=== PATIENT | male | born 1960 | race Caucasian/White ===

== ENCOUNTER 2020-09-17 17:08 | Emergency (ER) | payer SELFPAY ==
[~2020-09-17] VITALS: Ht 173 cm; Wt 82.0 kg
[2020-09-17 17:23] VITALS: BP 154/79
--- NOTE | 2020-09-17 17:35 | ED Fall/Injury ---
General Chief Complaint: Trauma-Non Activation Stated Complaint: FALL/R SHOULDER PAIN/ACHE Nursing Triage Note: PT STATES HE WAS UP ON THE ROOF OF HIS PORCH AND FELL OFF, ABOUT 8 FEET, CC OF RT SHOULDER PAIN, DENIES ANY OTHER PAIN OR HITTING HIS HEAD. Source: patient Exam Limitations: no limitations History of Present Illness Date Seen by Provider: Sep 17, 2020 Time Seen by Provider: 17:30 Initial Comments Patient is a 60-year-old male who presents to the emergency department today with a chief complaint of right shoulder pain. Patient states that he was on his roof about to clean out his gutters when he had a fall approximately 10 feet off of the roof of his porch. Patient states he landed on his right shoulder. He did suffer some abrasions and superficial scrapes to his left elbow and some bruising to his knees. Patient denies hitting his head he did not have a loss of consciousness. He denies any chest pain, shortness of breath, abdominal pain. Denies any headache vision changes, nausea or vomiting. States he is having difficulties with forward flexion at his right shoulder AB duction and rotation at the shoulder. No problems with his hand wrist or elbow. All other review of systems reviewed and negative except as stated. Occurred: just prior to arrival Severity: moderate Injuries/Pain Location: upper extremity Context: lost balance Loss of Consciousness: no loss of consciousness Modifying Factors: Improves With Immobilization Allergies and Home Medications Allergies Coded Allergies: No Known Drug Allergies (Unverified , 07/20/12) Patient Home Medication List Home Medication List Reviewed: Yes Review of Systems Review of Systems Constitutional: no symptoms reported, see HPI Eyes: No Symptoms Reported Ears, Nose, Mouth, Throat: no symptoms reported Respiratory: no symptoms reported Cardiovascular: no symptoms reported Gastrointestinal: no symptoms reported Genitourinary: no symptoms reported Musculoskeletal: joint pain, muscle pain Skin: lesions Past Jnianrw-Pbfeqv-Dsrrbq Hx Patient Social History Alcohol Use: Rarely Uses Alcohol Beverage of Choice: Beer Recreational Drug Use: Yes (THC) Smoking Status: Current Everyday Smoker Type Used: Cigarettes Recent Foreign Travel: No Contact w/Someone Who Travel: No Recent Infectious Disease Expo: No Recent Hopitalizations: No Physical Abuse: No Sexual Abuse: No Mistreated: No Fear: No Seasonal Allergies Seasonal Allergies: No Past Medical History Surgeries: Yes Eye Surgery Respiratory: No Cardiac: No Neurological: No Genitourinary: No Gastrointestinal: No Musculoskeletal: No Endocrine: No HEENT: Yes (RT EYE CATARACT) Cataract Cancer: No Psychosocial: No Integumentary: No Physical Exam Vital Signs Vital Signs - First Documented 09/17/20 17:23 Temp 36.8 Pulse 94 Resp 20 B/P (MAP) 154/79 (104) Pulse Ox 98 O2 Delivery Room Air Capillary Refill : Less Than 3 Seconds Height, Weight, BMI Height: '" Weight: lbs. oz. kg; 27.00 BMI Method:Stated General Appearance: WD/WN, no apparent distress HEENT: PERRL/EOMI, normal ENT inspection Neck: non-tender, full range of motion, supple Cardiovascular: regular rate, rhythm Respiratory: chest non-tender, lungs clear, normal breath sounds, no respiratory distress, no accessory muscle use Gastrointestinal: normal bowel sounds, non tender, soft Extremities: other (Right shoulder tenderness posteriorly, decreased range of motion especially with forward flexion abduction and and rotation; patient has abrasions to the left elbow) Neurologic/Psychiatric: no motor/sensory deficits, alert, normal mood/affect, oriented x 3 Skin: normal color, warm/dry Montgomery Coma Score Best Eye Response: (4) Open Spontaneously Best Verbal Response: (5) Oriented Best Motor Response: (6) Obeys Commands Progress/Results/Core Measures Results/Orders My Orders Orders - CONNIE BILLINGS MD Shoulder, Right, 3 Views (09/17/20 17:35) Vital Signs/I&O 09/17/20 17:23 Temp 36.8 Pulse 94 Resp 20 B/P (MAP) 154/79 (104) Pulse Ox 98 O2 Delivery Room Air Blood Pressure Mean: 104 Progress Progress Note : Time: 18:10 Progress Note 60-year-old male presents to the emergency department today with a chief complaint of right shoulder pain after a 10 foot fall. Evaluation today includes a physical exam. Patient clinically looks well. Has multiple superficial scrapes and abrasions. Will receive a tetanus shot while in the ER today. Patient's x- rays have been reviewed, 3 views of the right shoulder. No evidence of osseous abnormality is found. The radiologist has read the films and there is no evidence of fracture or dislocation. I suspect that the patient might have torn his rotator cuff. Will sling him give him some pain medicines and refer him to orthopedics. The patient is comfortable with this plan of care. All questions are sought and answered and he is stable for discharge. Diagnostic Imaging Diagonstic Imaging: Xray Comments [facility], [place] NAME: LESLY ANN [facility] REC#: [id number] PT STATUS: REG ER : 1960 PHYSICIAN: CONNIE BILLINGS MD ADMIT DATE: 09/17/20/ER Draft Date of Exam:09/17/20 SHOULDER, RIGHT, 3 VIEWS EXAM: Right shoulder radiograph. EXAM DATE: 09/17/2020. COMPARISON: Fall and right shoulder pain. TECHNIQUE: Three views of the right shoulder. FINDINGS: No acute fracture, dislocation or destructive osseous process. The joint spaces are normal. Soft tissues are normal. The humeral head is situated appropriately within the glenohumeral joint. Visualized lungs are clear. IMPRESSION: No acute osseous abnormality of the right shoulder. Dictated on workstation # [id number] Dict: 09/17/201751 Trans: 09/17/201755 [facility] [id number] Interpreted by: ELISA LONDON DO Electronically signed by: Departure Impression Primary Impression: Internal derangement of shoulder Qualified Codes: M24.811 - Other specific joint derangements of right shoulder, not elsewhere classified Disposition: 01 HOME, SELF-CARE Condition: Stable Departure-Patient Inst. Decision time for Depature: 18:11 Referrals: [facility] (PCP/Family) Primary Care Physician FLOR JAMES MD Patient Instructions: Contusion (DC) Add. Discharge Instructions: Use the shoulder sling for the next 48 hours as needed for comfort. Then slowly start some range of motion exercises with your right arm. Please call Dr. James's office tomorrow for a follow-up appointment. Pain medications as needed. You can alternate these with [id number] ibuprofen or Aleve. Ice your shoulder over the next 2 days as well periodically to reduce swelling and inflammation. Return to the emergency department for any new, emergent, worsening symptoms or concerns. All discharge instructions reviewed with patient and/or family. Voiced understanding. Scripts Hydrocodone/Acetaminophen (Hydrocodone/Acetaminophen 5 MG/325 MG TAB) 1 Each Tablet 1 TAB PO Q4-6HR for Pain MDD 10 TABS for 7 Days, #10 TAB Prov: CONNIE BILLINGS MD 09/17/20 CONNIE BILLINGS MD Sep 17, 2020 17:34
--- NOTE | 2020-09-17 17:56 | Diagnostic Imaging Report ---
EXAM: Right shoulder radiograph. EXAM DATE: 09/17/2020. COMPARISON: Fall and right shoulder pain. TECHNIQUE: Three views of the right shoulder. FINDINGS: No acute fracture, dislocation or destructive osseous process. The joint spaces are normal. Soft tissues are normal. The humeral head is situated appropriately within the glenohumeral joint. Visualized lungs are clear. IMPRESSION: No acute osseous abnormality of the right shoulder. Dictated by: Dictated on workstation # [id number]
[2020-09-17] MEDS ORDERED: HYDR-4226 PO (18:14)
[2020-09-17] MEDS ORDERED: TETANUS,DIPTH,PERTUSS P/F (BOOSTRIX) 0.5 ML VIAL IM ONE (18:30)
== END 2020-09-17 19:26 | disposition home or self-care (01) ==
LOC: EDUNIT# 17:08 → ER 17:12
DX: S80.02XA Contusion of left knee, initial encounter (principal); S80.01XA Contusion of right knee, initial encounter; S50.312A Abrasion of left elbow, initial encounter; M24.811 Other specific joint derangements of right shoulder, not elsewhere classified; F17.210 Nicotine dependence, cigarettes, uncomplicated; Z23 Encounter for immunization; W17.89XA Other fall from one level to another, initial encounter
CPT/HCPCS: 73030; 90715; 99283

== ENCOUNTER → 2020-09-22 | Outpatient (CLI) | payer OTHER ==
[~2020-09-22] MED LIST: HYDR-4226 PO
== END ==
LOC: ORTHO 11:12
PROVIDERS: ATTEND Orthopaedic Surgery
DX: S43.491A Other sprain of right shoulder joint, initial encounter (principal); M67.819 Other specified disorders of synovium and tendon, unspecified shoulder; M67.813 Other specified disorders of tendon, right shoulder
CPT/HCPCS: 99203

== ENCOUNTER → 2020-10-06 | Outpatient (CLI) | payer OTHER | LOC: ORTHO 10:06 | PROVIDERS: ATTEND Orthopaedic Surgery | DX: M75.101 Unspecified rotator cuff tear or rupture of right shoulder, not specified as traumatic (principal); F17.210 Nicotine dependence, cigarettes, uncomplicated; Z80.9 Family history of malignant neoplasm, unspecified | CPT/HCPCS: 99213 ==

== ENCOUNTER → 2020-10-20 | Outpatient (CLI) | payer OTHER ==
--- NOTE | 2020-10-20 16:06 | Diagnostic Imaging Report ---
PROCEDURE: MRI right joint upper extremity without contrast. TECHNIQUE: Multiplanar, multisequence non contrast-enhanced MRI of the right upper extremity was accomplished. INDICATION: Shoulder pain. COMPARISON: There are no prior MRI examinations available for comparison. FINDINGS: The plain film examination of the right shoulder performed on 09/17/2020 failed to show any sign of an acute bony abnormality. On the T2 fat-saturated coronal series there is a thin area of increased signal along the anterior most insertion of the rotator cuff. This does suggest a small rim rent tear. The supraspinous muscle in this area is slightly bunched but the muscle is not fully retracted. The rotator cuff is otherwise intact. There is hypertrophy of the acromioclavicular joint but there does not appear to be any significant narrowing of the outlet for the supraspinous muscle. However, there is some fluid in the subacromial bursa and this does suggest that there is an element of mild bursitis present. The biceps tendon and the subscapularis tendon are intact. The labrum is thinned posteriorly and most likely slightly torn on a degenerative basis. There is a trace joint effusion present. There is no abnormal signal arising from the osseous structures to suggest bone edema or a fracture. Cystic degenerative disease of the greater tuberosity is evident. IMPRESSION: 1. There is a small rim rent tear of the anterior most insertion the rotator cuff. The supraspinous muscle in this area is slightly bunched but the muscle itself is not fully retracted. 2. The acromioclavicular joint is hypertrophied but there is no narrowing of the outlet for the supraspinous muscle. 3. The fluid in the subacromial bursa does suggest that there is an element of bursitis present. 4. The labrum is thinned posteriorly and most likely slightly torn on a degenerative basis. 5. There is no acute bony abnormality appreciated. Dictated by: Dictated on workstation # [id number]
== END ==
LOC: RAD 12:31
PROVIDERS: ATTEND Orthopaedic Surgery
DX: M75.101 Unspecified rotator cuff tear or rupture of right shoulder, not specified as traumatic (principal); T15.91XA Foreign body on external eye, part unspecified, right eye, initial encounter
CPT/HCPCS: 73221

== ENCOUNTER → 2020-10-22 | Outpatient (CLI) | payer OTHER | LOC: ORTHO 09:04 | PROVIDERS: ATTEND Orthopaedic Surgery | DX: M75.101 Unspecified rotator cuff tear or rupture of right shoulder, not specified as traumatic (principal); F17.210 Nicotine dependence, cigarettes, uncomplicated; Z80.9 Family history of malignant neoplasm, unspecified | CPT/HCPCS: 20610; G0463 ==

== ENCOUNTER → 2021-08-05 | Outpatient (CLI) | payer OTHER ==
--- NOTE | 2021-08-05 15:04 | Diagnostic Imaging Report ---
EXAMINATION: CT chest without contrast. TECHNIQUE: Multiple contiguous axial images were obtained through the chest without the use of intravenous contrast. All CT scans use one or more of the following dose optimizing techniques: automated exposure control, MA and/or KvP adjustment based on patient size and exam type or iterative reconstruction. HISTORY: Shortness of breath COMPARISON: None available. FINDINGS: Thyroid: The thyroid is normal. Mediastinum: Heart size is normal without significant pericardial effusion. The aorta is normal in caliber. No suspicious lymphadenopathy. Lungs and airways: The lungs are clear without consolidation, pleural effusion, or pneumothorax. There is an ill-defined left perihilar fullness which is incompletely characterized without IV contrast. The airways are normal. Upper abdomen: There are multiple indeterminate hypoattenuating lesions seen within the liver measuring up to 2.9 cm. Musculoskeletal: Degenerative changes of the spine without suspicious osseous lesion or compression fracture. IMPRESSION: 1. Ill-defined fullness within the left hilum which is incompletely characterized on this noncontrast exam but is concerning for perihilar mass or lymphadenopathy. 2. Multiple suspicious hypoattenuating lesion seen within the liver which raises concern for metastatic disease. Dictated by: Dictated on workstation # [id number]
== END ==
LOC: RAD 14:45
PROVIDERS: ATTEND Nurse Practitioner Family
DX: R06.02 Shortness of breath (principal); R93.89 Abnormal findings on diagnostic imaging of other specified body structures
CPT/HCPCS: 71250

== ENCOUNTER → 2021-08-25 | Outpatient (CLI) | payer OTHER ==
--- NOTE | 2021-08-25 12:38 | Diagnostic Imaging Report ---
Indication: Abnormal CT chest with a questionable left hilar mass as well as liver lesions. The study is performed for further evaluation. Serum blood glucose level at the time of injection is 99 mg/dL. Patient was administered 13.3 mCi F-18 FDG intravenously in the right antecubital location and PET imaging was performed from the top of skull to mid thighs. Noncontrast CT was also performed for attenuation correction and anatomic correlation. No prior PET/CT studies are available for comparison. Comparison is made with a conventional noncontrast CT chest study from 08/05/2021. There is symmetric activity throughout the brain. Soft tissues of the neck are unremarkable. There is a hypermetabolic left hilar mass with SUV max of 10.3. There are also hypermetabolic lymph nodes in the left hilum as well as the mediastinum. Hypermetabolic nodes in the AP window and pretracheal location are noted. A pretracheal hypermetabolic node has SUV max of 7.7. No definite pulmonary parenchymal hypermetabolism is identified. There are numerous hypermetabolic lesions in the liver. Dominant lesion right lobe with SUV max of 6.2. Appears to be hypermetabolic node in the flaquito caval location. There is also hypermetabolic metabolic bone lesions with lesion at approximately T9 and L1 vertebral bodies. There is a small hypermetabolic like lesion in the left femoral neck. There is a small area of hypermetabolism in the pelvis and in the obturator region on the left but no corresponding enlarged node at this site on conventional CT is seen. IMPRESSION: Hypermetabolic left hilar mass, concerning for primary bronchogenic neoplasm. There appear to be hypermetabolic metastatic lymph nodes in the left hilum and mediastinum. There is hypermetabolic lesions within the liver consistent with hepatic metastatic disease as well as a hypermetabolic node in the portacaval location. There is hypermetabolic osseous lesions in the lower thoracic and upper lumbar spine as well as left hip. Dictated by: Dictated on workstation # [id number]
== END ==
LOC: RAD 08:15
PROVIDERS: ATTEND Nurse Practitioner Family
DX: R91.8 Other nonspecific abnormal finding of lung field (principal); R16.0 Hepatomegaly, not elsewhere classified; F17.200 Nicotine dependence, unspecified, uncomplicated; M89.9 Disorder of bone, unspecified
CPT/HCPCS: 78815; A9552

== ENCOUNTER 2021-11-03 21:05 | Emergency (ER) | payer SELFPAY | END 2021-11-03 22:10 | disposition left against medical advice (07) | LOC: EDUNIT# 21:05 → ER 21:08 | DX: R46.89 Other symptoms and signs involving appearance and behavior (principal) ==